=== PATIENT | male | born 1990 | race Hispanic/Latino ===

== ENCOUNTER 2017-03-12 16:58 | Emergency (ER) | payer OTHER ==
[2017-03-12 17:01] VITALS: BP 133/77; PULSE 113; RESP 16; TEMP 97.9; O2SAT 97
--- NOTE | 2017-03-12 17:58 | ED PDOC ---
HPI: Headache Time Seen by Provider: 03/12/17 17:09 Chief Complaint (Nursing): Headache Chief Complaint (Provider): Headache History Per: Patient History/Exam Limitations: no limitations Onset/Duration Of Symptoms: Days (x 1) Current Symptoms Are (Timing): Still Present Additional Complaint(s): Patient is a 27 y/o male who presents to the ED today with a headache that started yesterday after intercourse with orgasm. Patient states that the headache was constant yesterday and worse today, but not the worst headache of his life. He does get headaches but says this one is different, and also states that he had tingling in his left leg yesterday which resolved. Patient denies nausea, vomiting, dizziness, photosensitivity, or other medical complaints. He has not taken anything for the pain. PMD: None Provided Past Medical History Reviewed: Historical Data, Nursing Documentation, Vital Signs Vital Signs: Last Vital Signs Temp 97.9 F 03/12/17 17:01 Pulse 113 H 03/12/17 17:01 Resp 16 03/12/17 17:01 BP 133/77 03/12/17 17:01 Pulse Ox 97 03/12/17 17:01 - Medical History PMH: No Chronic Diseases - Surgical History Surgical History: No Surg Hx - Family History Family History: States: Unknown Family Hx - Home Medications Home Medications: Ambulatory Orders Medication Instructions Recorded Acetaminophen [Pain Reliever] 500 mg PO Q4 #30 tablet 03/12/17 - Allergies Allergies/Adverse Reactions: Allergies Allergy/AdvReac Type Severity Reaction Status Date / Time No Known Allergies Allergy Verified 03/12/17 17:05 Review of Systems ROS Statement: Except As Marked, All Systems Reviewed And Found Negative Constitutional: Negative for: Fever Eyes: Negative for: Other (photosensitivity) Gastrointestinal: Negative for: Nausea, Vomiting Neurological: Positive for: Headache, Other (tingling - resolved). Negative for : Dizziness Physical Exam - Reviewed Nursing Documentation Reviewed: Yes Vital Signs Reviewed: Yes - Physical Exam Appears: Positive for: Well, Non-toxic, No Acute Distress Head Exam: Positive for: ATRAUMATIC, NORMAL INSPECTION, NORMOCEPHALIC Skin: Positive for: Normal Color, Warm, Dry Eye Exam: Positive for: Normal appearance, EOMI, PERRL. Negative for: Nystagmus ENT: Positive for: Normal ENT Inspection Neck: Positive for: Normal, Painless ROM, Supple Cardiovascular/Chest: Positive for: Regular Rate, Rhythm. Negative for: Edema, Murmur Respiratory: Positive for: Normal Breath Sounds. Negative for: Wheezing, Respiratory Distress Gastrointestinal/Abdominal: Positive for: Normal Exam, Bowel Sounds, Soft. Negative for: Tenderness Back: Positive for: Normal Inspection Extremity: Positive for: Normal ROM. Negative for: Pedal Edema, Deformity Neurologic/Psych: Positive for: Alert, Oriented - Laboratory Results Result Diagrams: 03/12/17 17:54 03/12/17 17:54 - ECG O2 Sat by Pulse Oximetry: 97 (RA) Pulse Ox Interpretation: Normal Medical Decision Making Medical Decision Making: Time: 17:22 Initial Impression: acute headache post orgasmic rule out intracranial bleeding. Initial Plan: --CT Head w/o Contrast --BMP --CBC --PTT --Prothrombin Time --Reglan IV --Tylenol PO I discussed with the patient the need for Lumbar puncture to rule out SAH and patient refuses spinal tap at this time. He accepts alternative study instead- CT angio head/neck. Patient understands the risk and benefits of not doing and doing both or either study. He will be AMA upon discharge. Time: 18:54 CT HEAD FINDINGS: Streak artifact obscures evaluation of the skullbase. HEMORRHAGE: No intracranial hemorrhage. BRAIN: No mass effect or edema. The tejeda-white matter differentiation appears intact. Please note that MRI with diffusion imaging is more sensitive in the detection of acute ischemic event. VENTRICLES: No hydrocephalus. CALVARIUM: Unremarkable. PARANASAL SINUSES: Unremarkable as visualized. No significant inflammatory changes. MASTOID AIR CELLS: Unremarkable as visualized. No inflammatory changes. OTHER FINDINGS: Small right greater than left opacification of the external auditory canals, likely cerumen. IMPRESSION: No acute intracranial pathology identified. Time: 19:00 --Patient is signed out by me to Dr. Alan Trevizo pending reevaluation. Scribe Attestation: Documented by Mal Murphy, acting as a scribe for Dr. Govind Perez MD. Provider Scribe Attestation: All medical record entries made by the Scribe were at my direction and personally dictated by me. I have reviewed the chart and agree that the record accurately reflects my personal performance of the history, physical exam, medical decision making, and the department course for this patient. I have also personally directed, reviewed, and agree with the discharge instructions and disposition. Disposition - Clinical Impression Clinical Impression: Headache, Left against medical advice - Patient ED Disposition Is Patient to be Admitted: Transfer of Care Counseled Patient/Family Regarding: Studies Performed, Diagnosis - Disposition Referrals: García Severino MD [Medical Doctor] - Disposition: Transfer of Care Disposition Time: 19:00 Condition: STABLE Prescriptions: Acetaminophen [Pain Reliever] 500 mg PO Q4 #30 tablet Instructions: Acute Headache (ED), Against Medical Advice (ED) Forms: [employer] (Sy[place])
[2017-03-12 18:03] LABS: BASO # 0.1 K/uL (0.0-0.2); BASO % 1.2 % (0.0-2.0); EOS # 0.2 K/uL (0.0-0.7); EOS % 3.8 % (0.0-4.0); HEMATOCRIT 46.9 % (35.0-51.0); LYMPH # 1.8 K/uL (1.0-4.3); LYMPH % 30.2 % (20.0-40.0); MEAN CELL VOLUME 89.2 fl (80.0-94.0); MEAN CORPUSCULAR HEMOGLOBIN 30.5 pg (27.0-31.0); MEAN CORPUSCULAR HGB CONC 34.2 g/dL (33.0-37.0); MEAN PLATELET VOLUME 8.6 fl (7.2-11.7); MONO # 0.3 K/uL (0.0-0.8); MONO % 5.5 % (0.0-10.0); NEUT # 3.6 K/uL (1.8-7.0); NEUT % 59.3 % (50.0-75.0); RED CELL DISTRIBUTION WIDTH 12.9 % (11.5-14.5)
[2017-03-12 18:14] LABS: BLOOD UREA NITROGEN 13 mg/dl (9-20); CALCIUM 9.7 mg/dL (8.4-10.2); CARBON DIOXIDE 26 mmol/L (22-30); CHLORIDE 104 mmol/L (98-107); GFR AFRICAN-AMERICAN > 60; GLUCOSE,RANDOM 112 mg/dL (75-110); SODIUM 141 mmol/l (132-148)
[2017-03-12 18:48] LABS: PARTIAL THROMBOPLASTIN TIME 32.2 Seconds (25.6-37.1)
--- NOTE | 2017-03-12 18:56 | CT ---
PROCEDURE: CT HEAD WITHOUT CONTRAST. HISTORY: headache COMPARISON: None available. TECHNIQUE: Axial computed tomography images were obtained through the head/brain without intravenous contrast. Radiation dose: Total exam DLP = 862.95 mGy-cm. This CT exam was performed using one or more of the following dose reduction techniques: Automated exposure control, adjustment of the mA and/or kV according to patient size, and/or use of iterative reconstruction technique. FINDINGS: Streak artifact obscures evaluation of the skullbase. HEMORRHAGE: No intracranial hemorrhage. BRAIN: No mass effect or edema. The tejeda-white matter differentiation appears intact. Please note that MRI with diffusion imaging is more sensitive in the detection of acute ischemic event. VENTRICLES: No hydrocephalus. CALVARIUM: Unremarkable. PARANASAL SINUSES: Unremarkable as visualized. No significant inflammatory changes. MASTOID AIR CELLS: Unremarkable as visualized. No inflammatory changes. OTHER FINDINGS: Small right greater than left opacification of the external auditory canals, likely cerumen. IMPRESSION: No acute intracranial pathology identified.
[2017-03-12] MEDS ORDERED: Iodixanol 320 MG/ML 100 ML BOTTLE IV ONE (19:52)
[2017-03-12] MEDS ORDERED: Sodium Chloride 0.9% 50 ML IV ONE (19:53)
--- NOTE | 2017-03-12 19:54 | ED PDOC ---
- Laboratory Results Result Diagrams: 03/12/17 17:54 03/12/17 17:54 - ECG O2 Sat by Pulse Oximetry: 97 (RA) Pulse Ox Interpretation: Normal Medical Decision Making Medical Decision Making: Time: 19:00 --Patient signed out to me by Dr. Govind Perez pending reevaluation. Time: 2103 --CTA head FINDINGS: VASCULATURE: Right common carotid artery: Normal. No significant stenosis. No dissection or occlusion. Right internal carotid artery: Normal. Extracranial segment is patent with no significant stenosis. No dissection or occlusion. Right external carotid artery: Normal. No occlusion. Right vertebral artery: Normal. No significant stenosis. No dissection or occlusion. Left common carotid artery: Normal. No significant stenosis. No dissection or occlusion. Left internal carotid artery: Normal. Extracranial segment is patent with no significant stenosis. No dissection or occlusion. Left external carotid artery: Normal. No occlusion. Left vertebral artery: Normal. No significant stenosis. No dissection or occlusion. Other vasculature: The imaged thoracic aorta is normal in caliber. 3 vessel arch configuration. NECK: Bones/joints: Normal. No fracture or dislocation. Soft tissues: Normal as visualized. No mass. Lymph nodes: Multiple small cervical chain lymph nodes are present. No adenopathy back CT size criteria. Thyroid: The imaged thyroid gland is unremarkable. Lung apices: Normal appearance of the lung apices. HEAD: See report from CT head angiogram for detailed intracranial findings. CAROTID STENOSIS REFERENCE USING NASCET CRITERIA: % ICA stenosis = (1 - narrowest ICA diameter/diameter of distal cervical ICA) x 100. Mild - <50% stenosis. Moderate - 50-69% stenosis. Severe - 70-94% stenosis. Near occlusion - 95-99% stenosis. Occluded - 100% stenosis. IMPRESSION: 1. Normal appearance of the cervical carotid arteries. No internal carotid artery stenosis per NASCET criteria. 2. Normal appearance of the cervical vertebral arteries. 930PM: I spoke with the patient at the bedside. He states that his headache had improved and he was feeling better. I further discussed his results and that without an LP, we would not be able to rule out a SAH. Patient understands this and explains that he wanted to decline. I asked why patient was concerned about the LP and he expressed that he felt it was too invasive at this time. I explained the process of the LP with the patient including preparation and technique and explained that it was my recommendation that we perform the test. The patient understood the risks of not performing the test which include potentially missing a fatal diagnosis such as subarachonid hemorrhage (which I explained in layman terms) which could potentially cause worsening headaches, weakness, paralysis, permanent disability, or even amongst others. Patient was given adequate time to think this over and still decided to sign out AMA. Told the patient to followup with his doctor STEPHANIA and referral to neruology was given. Told to return to the ER for any concerning symptoms, such as worsening headache, vomiting, weakness, or any other concerning symptoms. Scribe Attestation: Documented by Mal Murphy, acting as a scribe for Dr. Alan Trevizo MD. Provider Scribe Attestation: All medical record entries made by the Scribe were at my direction and personally dictated by me. I have reviewed the chart and agree that the record accurately reflects my personal performance of the history, physical exam, medical decision making, and the department course for this patient. I have also personally directed, reviewed, and agree with the discharge instructions and disposition. Disposition - Clinical Impression Clinical Impression: Headache - POA Present On Arrival: None - Disposition Referrals: García Severino MD [Medical Doctor] - Disposition: AGAINST MEDICAL ADVICE Disposition Time: 22:00 Condition: STABLE Prescriptions: Acetaminophen [Pain Reliever] 500 mg PO Q4 #30 tablet Instructions: Acute Headache (ED), Against Medical Advice (ED) Forms: [employer] (Telugu)
--- NOTE | 2017-03-13 08:59 | CT ---
PROCEDURE: CTA HEAD AND NECK WITH CONTRAST HISTORY: Headache COMPARISON: None available. TECHNIQUE: Initial noncontrast head CT was performed. Subsequently, CT angiogram of the head and neck were performed after the intravenous administration of 80 mL of Omnipaque 350. Contiguous 1.5mm thick images were obtained in the axial plane of the neck. 2-D coronal and sagittal MPR images were obtained. Imaging postprocessing was performed with 3-D images also obtained. A delayed contrast head CT was also obtained. This CT exam was performed using one or more of the following dose reduction techniques: Automated exposure control, adjustment of the mA and/or kV according to patient size, and/or use of iterative reconstruction technique. Contrast dose: 80 mL Visipaque 320 Radiation dose: Total exam DLP = mGy-cm. FINDINGS: HEAD: Right: The intracranial internal carotid artery, and anterior and middle cerebral arteries are widely patent. Left: The intracranial internal carotid artery, and anterior and middle cerebral arteries are widely patent. Posterior circulation: The visualized intracranial vertebral arteries, basilar artery and posterior cerebral arteries are widely patent. There is origin of the right posterior cerebral artery. Ther is no endoluminal filling defect to suggest thrombus. There is no intracranial saccular aneurysm. There is no abnormal enhancement on the postcontrast CT. NECK: There is a three vessel aortic arch. There is no stenosis at the origins of the great vessels at the level of the aortic arch. Right Carotid: On the right, the common carotid, internal carotid and external carotid arteries are widely patent. There is no hemodynamically significant stenosis in the internal carotid arteries. Left Carotid: On the left, the common carotid, internal carotid and external carotid arteries are widely patent.There is no hemodynamically significant stenosis in the internal carotid arteries. The vertebral arteries are widely patent. The vertebral artery is hypoplastic, an anatomic variant. The visualized soft tissues of the neck are normal. The visualized brain and cervical spine are within normal limits. The lung apices are clear. IMPRESSION: Normal CTA of the head and neck. A preliminary report was provided by [employer] services.
== END 2017-03-12 21:47 | disposition left against medical advice (07) ==
LOC: H.ER 16:58
DX: R51 Headache (principal); R20.2 Paresthesia of skin
CPT/HCPCS: 70450; 70496; 70498; 80048; 85025; 85610; 85730; 96374; 99285; J2765; Q9967